=== PATIENT | male | born 1975 | race Caucasian/White ===

== ENCOUNTER 2024-10-07 21:16 | Emergency (ER) | payer MEDICAID, SELFPAY ==
[2024-10-07 21:27] VITALS: BP 148/99; PULSE 74; RESP 18; TEMP 36.7; O2SAT 99
[2024-10-07 21:29] VITALS: BMI 27.7
--- NOTE | 2024-10-07 21:42 | EDNOTE_ITS ---
ED General RME/HPI General Chief complaint: General Adult/Misc Complain Stated complaint: [facility] Time Seen by Provider: 10/07/24 21:39 Arrival date/time: 10/07/24 21:16 RME / HPI RME / HPI narrative: 49-year-old male patient was brought in by law enforcement to rule out foreign body. Apparently patient probably swallowed a razor blade. Patient is not sure. Patient is denying any complain no bleeding no vomiting. He told me that he probably swallowed it while he is sleeping. Related Data Allergies Allergy/AdvReac Type Severity Reaction Status Date / Time No Known Allergies Allergy Verified 10/07/24 21:27 Review of Systems Review of Systems Narrative Review of Systems: Review of system reviewed and within normal limits except mentioned in HPI ED Exam Narrative Physical exam: VITAL SIGNS: Reviewed. GENERAL APPEARANCE: Alert and interactive, follows commands, no acute distress, HEAD AND FACE: Non-traumatic. ENT: PERRL, pink conjunctivitis, eyelid no trauma, Mucous membrane moist. NECK: Supple, nontender, no nuchal rigidity. CHEST: No tenderness, no crepitus, no paradoxical movement, no retractions. LUNGS: Clear, well ventilated, symmetric, no rales, no wheezing, no ronchi, no stridor, good breath sounds bilaterally. HEART: Regular rate, regular rhythm, no murmur, no gallops. ABDOMEN: Soft, positive bowel sounds, nondistended, no guarding, nontender, no rebound, no masses, RECTAL: Deferred. GENITAL: Deferred. NEUROLOGICAL: Gross motor function intact sensory function intact, Appropriate for age. MUSCULOSKELETAL: low back nontender, full range of motion. EXTREMITIES: Nontender, full range of motion. SKIN: Color pink, dry, no rash, no lacerations, no abrasions, no contusions. LYMPHATICS: Deferred. Course Quality Measures none Orders Category Date Time Status XR abdomen 1V Stat Exams 10/07/24 21:42 Taken XR chest 1V Stat Exams 10/07/24 21:49 Taken Vital Signs Vital signs: Vital Signs Temperature 98.1 F 10/07/24 21:27 Pulse Rate 74 10/07/24 21:27 Respiratory Rate 18 10/07/24 21:27 Blood Pressure 148/99 H 10/07/24 21:27 Pulse Oximetry (%) 99 10/07/24 21:27 Oxygen Delivery Method Room Air 10/07/24 21:27 [facility] Patient data External records reviewed:: None Clinical information provided by:: patient Social determinants that could affect healthcare access:: none Patient has the following chronic illnesses:: None How is presenting disease/condition affected by chronic disease/condition?: exacerbated by Evaluation data The following diagnostics were reviewed and interpreted by me:: radiology exam(s) Lab and/or radiology exams considered but not ordered:: None Interpretation Summary: See results [facility] Medications Medications considered but not ordered:: None Medication administrations:: None Consultations Consultation(s) initiated? (list below): No Diagnosis Differential Diagnosis ED Complaint MDM: Foreign body aspiration, foreign body ingestion, no foreign body noted on e Most likely diagnosis given after review of the tests above:: No foreign body noted on evaluation Admission Indicated Admission indicated?: not indicated Explain why admission is indicated or not indicated:: Stable Admission Request Was there a request for admission?: No Disposition Plan Disposition Plan: Discharge Discharge Attestation Discharge Attestation: Patient is medically cleared to go back to assisted. Patient condition: Stable Medical Decision Making MDM Narrative MDM Narrative: 49-year-old male patient was brought in by law enforcement to rule out foreign body. Apparently patient probably swallowed a razor blade. Patient is not sure. Patient is denying any complain no bleeding no vomiting. He told me that he probably swallowed it while he is sleeping. Chest x-ray came back unremarkable no foreign body noted extremity abdomen came back with no foreign body noted also. Results discussed with the patient. Patient is medically cleared to go back to assisted Patient appears nontoxic and hemodynamically stable. Patient discharged home and instructed to follow-up with primary care provider in 24 to 48 hours. Instructed to return to the emergency department immediately if worsening of symptoms Differential Diagnosis Differential Diagnosis: Foreign body aspiration, foreign body ingestion, no foreign body noted on e Discharge Plan Plan Patient Disposition: [facility]/Court/Law Prescriptions/Referrals Referrals: No Primary/Family,Physician [Primary Care Provider] - In 1 week Problem List Clinical Impression: No foreign body found on evaluation Patient/Caregiver Discharge Instructions Discharge Activity: activity as tolerated Education Materials: ED Swallowed Foreign Body (Adult) Additional Instructions: Thank you for the opportunity for serving you today. You are stable for discharged . We did not see any foreign body today on your chest x-ray and x-ray of the abdomen Print Language: Kinyarwanda Stand Alone Forms: Lovely Award Info., Patient Portal Info Letter PA/SKILLED NURSING [employer] PROFESSIONAL Supervising Physician PA/SKILLED NURSING [employer]ACILITIES PROFESSIONAL Supervising Physician: MD Verna
--- NOTE | 2024-10-07 21:42 | XR_ITS ---
Examination: Abdomen AP single view Technique: AP portable supine abdomen, single view Exam date and time: October 07, 2024 2155 hrs. Indications: November 26, 1940 body Impression: Large amounts of stool throughout the colon Old deformity right iliac bone No opaque foreign body seen No free air Impression: No opaque foreign body seen
--- NOTE | 2024-10-07 21:49 | XR_ITS ---
Examination: PA chest single view Technique: Upright PA chest single view Exam date and time: October 08, 1999 2520 0124 hrs. Indications: General checked, surgical foreign body Findings: Normal heart size No pneumonia or pulmonary edema No opaque foreign body Multiple right-sided old rib fractures Impression: No opaque foreign body seen
[2024-10-07 23:28] VITALS: BP 140/89; PULSE 77; RESP 16; TEMP 36.7; O2SAT 98
== END 2024-10-07 23:28 ==
PROVIDERS: Emergency Provider Emergency Medicine
DX: Z02.89 Encounter for other administrative examinations (principal); Z03.823 Encounter for observation for suspected inserted (injected) foreign body ruled out
CPT/HCPCS: 71045; 74018; 99283